=== PATIENT | female | born 2000 | race Caucasian/White ===

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

== ENCOUNTER 2021-09-04 10:50 | Emergency (ER) | payer MEDICAID | END 2021-09-04 12:15 | disposition home or self-care (01) | LOC: FB.ED 10:50 | DX: N92.0 Excessive and frequent menstruation with regular cycle (principal); K21.9 Gastro-esophageal reflux disease without esophagitis | CPT/HCPCS: 36415; 81025; 85027; 85610; 99283 ==